=== PATIENT | female | born 1985 | race Hispanic/Latino ===

== ENCOUNTER 2016-06-13 07:14 | Emergency (ER) | payer OTHER ==
[~2016-06-13] VITALS: Ht 172.7 cm; Wt 111.1 kg
[~2016-06-13 07:14] MED LIST: BENTYL20 MG PO; EPI SC; IBUPROFEN800 MG PO; PREDNISONE 20MG20 MG PO; PREDNISONE10 MG PO; ULTRAM(MONOGRAP50 MG PO; ZOFRAN ODT4 MG SL; ZYRTEC ALLERGY10 MG PO
[2016-06-13 07:27] VITALS: BP 119/80
--- NOTE | 2016-06-13 07:51 | ED THROAT/DENTAL COMPLAINT ---
History of Present Illness General Chief Complaint: Sore Throat, Dental Pain Stated Complaint: SORE THROAT X 5 DAYS Source: patient Exam Limitations: no limitations Vital Signs & Intake/Output Vital Signs & Intake/Output Vital Signs Date Time Temp Pulse Resp B/P Pulse O2 O2 Flow FiO2 Ox Delivery Rate 06/13 0727 97.1 60 18 119/80 98 Room Air Allergies Coded Allergies: NO KNOWN ALLERGIES (03/15/15) Reconcile Medications Methylprednisolone. (Medrol) 4 MG TAB.DS.PK 1 DP PO AD INFLAMMATION 6 on day 1 then reduce by one tablet daily until gone Triage Note: PT COMPLAINS OF SORE THROAT FOR 5 DAYS AND SCRATCHY VOICE, DENIES COUGH AT THIS TIME, STATES THAT SHE DID HAVE ONE Triage Nurses Notes Reviewed? yes Onset: Gradual Duration: constant Timing: recent history Injury Environment: home Severity: moderate Severity Numbers: 5 No Modifying Factors: none : No Patient currently breastfeeds: No HPI: Patient is a 30-year-old female who presents to emergency room with a four-day history of sore throat and hoarse voice. Patient has associated symptoms of generalized weakness and fatigue and nonproductive cough. Denies any similar symptoms. Has not taken any medications for symptoms. Past History Travel History Traveled to [place] past 21 day No Medical History Any Pertinent Medical History? 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 No Review of Systems Review of Systems Constitutional: Reports: see HPI. EENTM: Reports: throat pain. Respiratory: Reports: see HPI. Cardiovascular: Reports: no symptoms. GI: Reports: no symptoms. Genitourinary: Reports: no symptoms. Musculoskeletal: Reports: no symptoms. Skin: Reports: no symptoms. Neurological/Psychological: Reports: no symptoms. Hematologic/Endocrine: Reports: no symptoms. Immunologic/Allergic: Reports: no symptoms. All Other Systems: Reviewed and Negative Physical Exam Physical Exam General Appearance: no apparent distress, alert Mouth/Throat: normal mouth inspection Comments: Well-developed well-nourished person in no acute distress HEENT: Normal EENT exam, extraocular motion intact, no nystagmus. Pupils equally round and reactive to light and accommodation. Nose is atraumatic. External auditory canal and Tympanic membranes clear. Pharynx normal. No swelling or edema. No sinus tenderness no nasal congestion Hoarse voice noted Neck: Supple, no lymphadenopathy, normal range of motion without pain or tenderness Back: Nontender, no CVA tenderness. Cardiovascular: Regular rate and rhythms no murmurs rubs or gallops, normal JVP Respiratory: Chest nontender. No respiratory distress.breath sounds clear to auscultation bilaterally Abdomen: Soft, nontender nondistended, no appreciable organomegaly. Normal bowel sounds. No ascites Extremity: No edema, no calf tenderness to palpation, normal and equal pulses. Neuro: Alert oriented x3, motor sensory normal, Skin: No appreciable rash on exposed skin, skin is warm and dry. Psych: Mood and affect is normal, memory and judgment is normal. Core Measures ACS in differential dx? No Severe Sepsis Present: No Septic Shock Present: No Progress Differential Diagnosis: aspirated tooth, carious tooth, epiglottitis, Ludwigs angina, meningitis, odontogenic abscess, charity-tonsillar abscess, pharyngeal for. body, stomatitis/gingivitis, strep pharyngitis, tooth fracture, LARYNGITIS, Plan of Care: Orders Procedure Date/time Status THROAT CULTURE W/QUICK STREP 06/13 0624 Active Patient currently looks well no apparent distress and had unremarkable physical exam finding except for audible voice hoarseness. Initial rapid strep was negative cultures pending. Patient will be treated for suspicion of laryngitis. Patient able tolerate by mouth no signs of Abraham's angina no signs of peritonsillar abscess no signs of trismus pharynx was unremarkable no exudates patient afebrile no adenopathy (TALYA BROWNLEE) Departure Departure Disposition: HOME OR SELF CARE Condition: Stable Clinical Impression Primary Impression: Laryngitis Referrals: SHILPA ZHU MD (PCP/Family) Additional Instructions: As discussed begin the prescription of Medrol Dosepak as directed for the full course. Begin the prescription Magic mouthwash for sore throat. Begin over-the -counter ibuprofen for pain and inflammation. If symptoms do not improve in 3 days follow-up with her primary care doctor. If symptoms worsen or she develop a new concerning symptom return to emergency room immediately. Departure Forms: Customer Survey General Discharge Information Prescriptions: Current Visit Scripts Methylprednisolone. (Medrol) 1 DP PO AD #1 DP 6 on day 1 then reduce by one tablet daily until gone
[2016-06-13] MEDS ORDERED: MEDROL4 M2 PO (07:57)
== END 2016-06-13 08:17 ==
LOC: ERH 07:14
DX: J04.0 Acute laryngitis (principal); Z72.0 Tobacco use

== ENCOUNTER 2016-11-16 03:20 | Emergency (ER) | payer OTHER ==
[~2016-11-16] VITALS: Ht 172.7 cm; Wt 114.8 kg
[~2016-11-16 03:20] MED LIST changes: +MEDROL4 M2 PO
--- NOTE | 2016-11-16 04:40 | ED GI/GU/ABDOMINAL COMPLAINT ---
History of Present Illness General Chief Complaint: Nausea, Vomiting, Diarrhea Stated Complaint: +V/+D X'S 2 DAY'S Source: patient Exam Limitations: no limitations Vital Signs & Intake/Output Vital Signs & Intake/Output Vital Signs Date Time Temp Pulse Resp B/P B/P Pulse O2 O2 Flow FiO2 Mean Ox Delivery Rate 11/16 0542 96.9 58 18 118/72 99 Room Air 11/16 0334 98 Room Air 11/16 0332 96.2 64 18 104/70 98 Room Air Allergies Coded Allergies: NO KNOWN ALLERGIES (03/15/15) Reconcile Medications Methylprednisolone. (Medrol) 4 MG TAB.DS.PK 1 DP PO AD INFLAMMATION 6 on day 1 then reduce by one tablet daily until gone Triage Note: PT TO ER C/C N/V/D AND ESOPHAGEAL/EPIGASTRIC CRAMPING PAIN X 2 DAYS. DENIES URINARY S/S. LMP TODAY Triage Nurses Notes Reviewed? yes ? N Is pt currently ? No HPI: Patient presents for evaluation of nausea vomiting diarrhea and left lower quadrant abdominal pain that began relatively abruptly 2 days ago. She tried Advil without improvement. The pain is a cramping twisting squeezing pain, constant and without radiation. The pain actually seems to be worsening. Patient states that she had one blood tinged loose bowel movement with a yellow- green discoloration. Patient denies any known ill contacts, recent travel, antibiotic use or fever/cold symptoms. Past History Travel History Traveled to [place] past 21 day No Medical History Any Pertinent Medical History? 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 No Review of Systems Review of Systems Constitutional: Reports: no symptoms. EENTM: Reports: no symptoms. Respiratory: Reports: no symptoms. Cardiovascular: Reports: no symptoms. GI: Reports: see HPI. Genitourinary: Reports: no symptoms. Musculoskeletal: Reports: no symptoms. Skin: Reports: no symptoms. Neurological/Psychological: Reports: no symptoms. Hematologic/Endocrine: Reports: no symptoms. Immunologic/Allergic: Reports: no symptoms. All Other Systems: Reviewed and Negative Physical Exam Physical Exam Gastrointestinal: SEE BELOW Comments: Gen.: Well-nourished, well-developed, no acute respiratory distress. Head: Normocephalic, atraumatic. Eyes: Normal inspection bilaterally Ears: Normal inspection bilaterally Nose: Normal inspection Throat/mouth : Moist mucosa Neck: Supple, full range of motion, no goiter Heart: Regular rate and rhythm, no murmurs rubs or gallops Lungs: Clear to auscultation bilaterally with normal air entry Chest: Nontender Back: Normal range of motion Abdomen: Soft, left lower quadrant abdominal tenderness without rebound or guarding, nondistended, decreased bowel sounds, no palpable masses. Extremities: Normal range of motion grossly, equal radial pulses, no cyanosis clubbing or edema Neurologic: Cranial nerves grossly intact, speech is clear Skin: warm and dry Psychiatric: Calm, cooperative, no apparent delusions or hallucinations Core Measures ACS in differential dx? No Severe Sepsis Present: No Septic Shock Present: No Progress Differential Diagnosis: AAA (1 BOWEL OBSTRUCTION OR BILIARY), diverticulitis ([place] ), COLITIS Plan of Care: Orders Procedure Date/time Status URINALYSIS 11/16 438 Complete LIPASE 11/16 438 Complete HUMAN BETA HCG SCREEN 11/16 438 Complete COMPREHENSIVE METABOLIC PANEL 11/16 438 Complete CBC WITHOUT DIFFERENTIAL 11/16 438 Complete Laboratory Tests 11/16/16 0454: Anion Gap 8, Estimated GFR > 60, BUN/Creatinine Ratio 15.7, Glucose 95, Calcium 8.7, Total Bilirubin 0.3, AST 24, ALT 38, Alkaline Phosphatase 96, Total Protein 6.7, Albumin 3.8, Globulin 2.9, Albumin/Globulin Ratio 1.3, Lipase 87, Total Beta HCG NEGATIVE, CBC w Diff NO MAN DIFF REQ, RBC 4.41, MCV 85.6, MCH 27.9, RDW 14.7 H, MPV 9.5, Gran % 60.0, Lymphocytes % 30.7, Monocytes % 6.0, Eosinophils % 2.7, Basophils % 0.6, Absolute Granulocytes 6.0, Absolute Lymphocytes 3.1, Absolute Monocytes 0.6, Absolute Eosinophils 0.3, Absolute Basophils 0.1, PUBS MCHC 32.6 L, Urine Color PINK H, Urine Clarity CLDY H, Urine pH 6.5, Ur Specific [place] 1.025, Urine Protein 100 H, Urine Ketones NEG, Urine Nitrite NEG, Urine Bilirubin NEG, Urine Urobilinogen 0.2, Ur Leukocyte Esterase TRACE H , Ur Microscopic SEDIMENT EXAMINED, Urine RBC >75 H, Urine WBC 3-5 H, Ur Epithelial Cells FEW, Urine Bacteria MOD H, Urine Hemoglobin LARGE H, Urine Glucose NEG Initial ED EKG: none Comments: 11/16/2016 6:17:31 AM I have updated Kaley on her test results. She continues to decline any pain medication here in the emergency department. Appendicitis-the patient did not have migration of the pain to the right lower quadrant, tenderness over McBurney's point, Rovsing sign, white cell blood count was not elevated, and the diagnostic imaging studies did not confirm this Peritonitis-the patient had no rebound or guarding, did not have a rigid abdomen , the white blood cell count was not elevated and There was no inflammatory process on diagnostic imaging studies. Cholecystitis-the patient had no Rios's sign on exam, white blood cell count was normal, and diagnostic imaging studies showed no inflammatory changes in the region of the gallbladder Pancreatitis-the lipase was normal, patient had no history of alcohol abuse or hypertriglyceridemia, but the diagnostic imaging studies did not show inflammation or edema in the area of the pancreas GI bleed-patient had no history of prior GI bleed, patient denied consistent use of NSAIDs, the patient is not taking anticoagulants such as Coumadin, the patient denied melena. AAA-the patient has a paucity of significant risk factors for vascular disease, there is no pulsatile abdominal mass, lower extremity pulses were equal Hernia-there were no apparent hernias on physical examination, the patient denied any unusual bulges or masses Ischemic bowel-the patient has a paucity of risk factors for vascular disease or thrombosis, physical examination did not reveal pain out of proportion to physical exam findings, diagnostic imaging studies were inconsistent with bowel ischemia Bowel obstruction-patient's abdomen was not significantly distended or hypertympanitic, patient had good bowel sounds, patient was having bowel movements and passing flatus. Finally, CAT scan of the abdomen and pelvis did not reveal any of the above. Departure Departure Disposition: HOME OR SELF CARE Condition: Stable Clinical Impression Primary Impression: Nonspecific abdominal pain Referrals: SHILPA ZHU MD (PCP/Family) Additional Instructions: Clear liquid diet and advance as tolerated. [id number] pain medication as needed. Follow-up with your primary care physician for reevaluation of your abdominal pain in 24 hours if not improving. Return immediately if any concerns or sudden worsening. Please note that there might be incidental findings in your evaluation that are unrelated to the current emergency department visit. Please notify your primary care doctor about this emergency department visit in order to obtain and review all of the testing performed so that these incidental findings can be monitored as needed. If you had an x-ray performed, please understand that some fractures may not be seen on the initial set of x-rays. If your symptoms persist you might need a repeat set of x-rays to check for such a fracture. If you had a laceration evaluated, please understand that foreign bodies such as glass or wood may not be visible to the naked eye or on plain x-rays. If the wound becomes red, swollen, increasingly more painful or if there is any drainage from the wound, please have it reevaluated by a physician for the possibility of a retained foreign body. Thank you for choosing the [facility] for your care. It was a pleasure to serve you today. León Che M.D. [facility] Departure Forms: Customer Survey General Discharge Information
[2016-11-16 05:03] LABS: ABSOLUTE BASOPHIL COUNT 0.1 /CUMM (0.0-0.2); ABSOLUTE EOSINOPHIL COUNT 0.3 /CUMM (0.0-0.7); ABSOLUTE LYMPH COUNT 3.1 /CUMM (1.2-3.4); ABSOLUTE MONOCYTE COUNT 0.6 /CUMM (0.10-0.60); BASOPHIL % 0.6 % (0.0-2.0); EOSINOPHIL % 2.7 % (0-5); HEMATOCRIT 37.7 % (37-47); MEAN CORPUSCULAR HGB 27.9 PG (27.0-31.0); MEAN CORPUSCULAR HGB CONC 32.6 G/DL (33.0-37.0); MEAN CORPUSCULAR VOLUME 85.6 FL (81.0-99.0); MEAN PLATELET VOLUME 9.5 FL (7.4-10.4); PLATELET COUNT 223 /CUMM (130-400); RBC DISTRIBUTION WIDTH 14.7 % (11.5-14.5); RED BLOOD CELL CT 4.41 /CUMM (4.20-5.40); WHITE BLOOD CELL COUNT 10.1 /CUMM (4.8-10.8)
[2016-11-16 05:42] VITALS: BP 118/72
--- NOTE | 2016-11-16 06:06 | CT SCAN REPORT ---
EXAMINATION: CT ABDOMEN AND PELVIS WITHOUT CONTRAST CLINICAL INFORMATION: Left lower quadrant abdominal pain and tenderness. COMPARISON: No relevant prior imaging is available. TECHNIQUE: Multidetector volumetric imaging was performed from the superior aspect of the liver through the pubic symphysis. Sagittal and coronal reformatted images were obtained on the technologist's workstation. DLP: 950.01 mGy-cm FINDINGS: LUNG BASES: The visualized lung bases are unremarkable. LIVER, GALLBLADDER, AND BILIARY TREE: The unenhanced liver attenuation is homogeneous with no evidence of a discrete hepatic parenchymal mass. The gallbladder is unremarkable with no evidence of radiopaque gallstones, gallbladder wall thickening, or obvious pericholecystic inflammatory changes. PANCREAS: Unremarkable. SPLEEN: Unremarkable. ADRENAL GLANDS: Unremarkable. KIDNEYS AND URETERS: The kidneys are normal in size, shape, and attenuation. No hydronephrosis, hydroureter, or calculi seen. No perinephric stranding. BLADDER: Unremarkable. GASTROINTESTINAL TRACT: The small and large bowel are unremarkable. The appendix is unremarkable. ABDOMINAL WALL: No significant hernia is appreciated. LYMPH NODES: Normal. VASCULAR: Unremarkable. PELVIC VISCERA: There is an intrauterine device within the endometrial cavity of an anteverted uterus. No worrisome adnexal mass. OSSEOUS STRUCTURES: Unremarkable. IMPRESSION: The diagnostic accuracy of this examination is limited by the absence of intravenous contrast. No abnormal finding to provide an explanation for the patient's left lower quadrant abdominal pain.
== END 2016-11-16 06:26 ==
LOC: ERH 03:20
PROVIDERS: Emergency Medicine
DX: R10.32 Left lower quadrant pain (principal)
CPT/HCPCS: 74176; 81001